=== PATIENT | female | born 1985 | race Caucasian/White ===

== ENCOUNTER 2018-08-04 12:47 | Inpatient (IN) | payer BC ==
[2018-08-04] VITALS (37 sets, daily range): BP systolic 116–190; BP diastolic 67–114; PULSE 64–94; RESP 5–21; BMI 30.7
[~2018-08-04] VITALS: Ht 160 cm; Wt 82.6 kg
[2018-08-04] MEDS ORDERED: MAGNESIUM SULFATE 20 GM/500 ML 500 ML IV SCH (13:05)
[2018-08-04] MEDS ORDERED: FUROSEMIDE 40 MG INJ ONE ×3 (13:05→13:28)
[2018-08-04] MEDS ORDERED: MAGNESIUM SULFATE 4 GM/100 ML 100 ML IV SCH (13:05)
[2018-08-04] MEDS ORDERED: LABETALOL HCL 20MG INJ ONE ×3 (13:09→13:29)
[2018-08-04] MEDS ORDERED: hydrALAzine 20 MG INJ ONE (13:36)
[2018-08-04] MEDS ORDERED: SUCCINYLCHOLINE CHLORIDE 100 MG/5 ML SYG IV ONE (13:45)
[2018-08-04] MEDS ORDERED: METOCLOPRAMIDE 10 MG INJ ONE (13:45)
[2018-08-04] MEDS ORDERED: CEFAZOLIN 1 GM INJ ONE (13:45)
[2018-08-04] MEDS ORDERED: PROPOFOL 20 ML ONE (13:45)
[2018-08-04] MEDS ORDERED: OXYTOCIN 30 UNITS/LR 500 ML IV ONE (13:46)
[2018-08-04] MEDS ORDERED: HYDROmorphONE 2 MG/ML SYG ONE (13:52)
[2018-08-04] MEDS ORDERED: ROPIVACAINE 0.5 % 30 ML VIAL ONE (14:03)
--- NOTE | 2018-08-04 14:14 | PREAC ---
Date/Time of Note Date/Time of Note DATE: 08/04/18 TIME: 14:12 Anesthesia Eval and Record Evaluation Time Pre-Procedure Interview DATE: 08/04/18 TIME: 14:12 Age 32 Sex female NPO: 4 hrs Preoperative diagnosis severe eclampsie pul edema, epigastic pain Planned procedure c section Past Medical History Past Medical History: Includes : Gestational age: (31) Surgery & Anesthesia Issues No known issue Meds Anticoagulation: No Beta Omar within 24 hr: No Reason Beta Omar not given: Pt. not on B-Omar Current Medications Lactated Ringer's 1,000 ml @ 125 mls/hr Q8H IV ; Start 08/04/18 at 14:07 Cefazolin Sodium/ Dextrose 50 ml @ 100 mls/hr ONCE IVPB ; Start 08/04/18 at 14:30 Oxytocin/Lactated Ringer's 500 ml @ 0 mls/hr ONCE PRN IV .VAGINAL BLEEDING; Start 08/04/18 at 14:30; Status UNV Methylergonovine Maleate (Methergine) 0.2 mg ONCE PRN IM .VAGINAL BLEEDING; Start 08/04/18 at 14:30 Carboprost Tromethamine (Hemabate) 250 mcg ONCE PRN IM .VAGINAL BLEEDING; Start 08/04/18 at 14:30; Status UNV Misoprostol (Cytotec) 1,000 mcg ONCE PRN SD .VAGINAL BLEEDING; Start 08/04/18 at 14:30; Status UNV Meds reviewed: Yes Allergies Coded Allergies: No Known Allergy (Unverified , 08/04/18) Allergies Reviewed: Yes Labs/Studies Labs Reviewed: Reviewed by anesthesiologist Result Diagram: 08/04/18 1324 08/04/18 1324 Laboratory Tests 08/04/18 13:24 test: Positive Studies: ECG (n/a) Pre-procedure Exam Airway: Adequate mouth opening Mallampati: Mallampati I Teeth: Normal Lung: Normal Heart: Normal ASA Physical Status ASA physical status: 3 Emergency: E Planned Anesthetic General/MAC: ETT Nerve block: TAP (bilateral) Planned Pain Management Single shot nerve block, Parenteral pain med Pre-operative Attestations Prior to commencing anesthesia and surgery, the patient was re-evaluated, there was verification of: *The patient's identity *The results of appropriate recent lab work and preoperative vital signs *The above evaluation not changing prior to induction *Anesthetic plan, risk benefits, alternative and complications discussed with patient/family; questions answered; patient/family understands, accepts and wishes to proceed. CUBA DOZIER MD August 04, 2018 14:14
[2018-08-04] MEDS ORDERED: MISOPROSTOL 200 MCG TAB PR PRN ×2 (14:30→15:30)
[2018-08-04] MEDS ORDERED: METHYLERGONOVINE 0.2 MG INJ IM PRN (14:30)
[2018-08-04] MEDS ORDERED: CARBOPROST 250 MCG INJ IM PRN ×2 (14:30→15:30)
[2018-08-04] MEDS ORDERED: OXYTOCIN 30 UNITS/LR 500 ML IV PRN ×2 (14:30→15:30)
[2018-08-04] MEDS ORDERED: CEFAZOLIN 2 GM/50 ML (PMX) 50 ML IVPB SCH (14:30)
--- NOTE | 2018-08-04 14:31 | OPPN ---
Date/Time of Note Date/Time of Note DATE: 08/04/18 TIME: 14:27 Operative Report Planned Procedure Procedure date August 04, 2018 Procedure(s) Primary c/s Performed by Shanta Loredo MD Park Worker: STEPHANIE KINGSLEY MD 2nd Park Worker none Anesthesiologist: CUBA DOZIER MD Pre-procedure diagnosis preeclampsia with severe features [id number] Anesthesia Type: [id number] general Post-Procedure Post-procedure diagnosis same Findings Live Baby [], Apgars 6 and 7 Estimated Blood Loss: other (500 ml) Specimen(s) Placenta Grafts/Implant(s) none Complication(s) none SHANTA LOREDO MD August 04, 2018 14:31
[2018-08-04] MEDS: MAGNESIUM SULFATE 20 GM/500 ML 500 ML IV SCH ×2 (15:00→23:36)
[2018-08-04] MEDS ORDERED: OXYTOCIN 30 UNITS/LR 500 ML IV SCH (15:12)
[2018-08-04] MEDS ORDERED: LACTATED RINGER'S 1,000 ML IV SCH (15:12)
[2018-08-04] MEDS ORDERED: LANOLIN HPA 1 PKT TOP PRN (15:30)
[2018-08-04] MEDS ORDERED: OXYCODONE/ACETAMINOPHEN (5/325) TAB PO PRN ×3 (15:30→17:00)
[2018-08-04] MEDS ORDERED: ONDANSETRON 4 MG INJ IV PRN (15:30)
[2018-08-04] MEDS ORDERED: LABETALOL HCL 20MG INJ IV ONE ×2 (15:30→18:00)
[2018-08-04] MEDS ORDERED: HYDROmorphONE 0.2 MG/ML PCA IV SCH ×3 (15:30→17:30)
[2018-08-04] MEDS ORDERED: KETOROLAC 30 MG INJ IV PRN ×2 (15:30→17:00)
[2018-08-04] MEDS ORDERED: MEPERIDINE 25 MG INJ IV PRN (15:30)
[2018-08-04] MEDS ORDERED: DIPHENHYDRAMINE 50 MG INJ IV PRN ×2 (15:30→17:00)
[2018-08-04] MEDS ORDERED: HYDROmorphONE 0.5 MG/0.5 ML SYG IV PRN ×3 (15:30→17:00)
[2018-08-04] MEDS: LACTATED RINGER'S 1,000 ML IV SCH ×2 (15:35→21:31)
[2018-08-04] MEDS: HYDROmorphONE 0.5 MG/0.5 ML SYG IV PRN ×2 (15:45→16:38)
[2018-08-04] MEDS: LABETALOL HCL 20MG INJ IV PRN ×2 (16:38→19:53)
[2018-08-04] MEDS ORDERED: NALOXONE (0.4 MG/ML) INJ IV PRN (17:00)
[2018-08-04] MEDS ORDERED: HYDROmorphONE 1 MG/ML SYG IV PRN (17:00)
[2018-08-04] MEDS ORDERED: ACETAMINOPHEN 500 MG TAB PO PRN (17:00)
[2018-08-04] MEDS ORDERED: FUROSEMIDE 20 MG INJ IV ONE (18:00)
--- NOTE | 2018-08-04 19:29 | HP ---
Date/Time of Note Date/Time of Note DATE: 08/04/18 TIME: 19:28 Late entry note OB - History Hx of Present Free Text/Dictation August 04, 2018 : 5 Para: 3 Spontaneous : 1 Other Concerns: 32-year-old 5 para 3 with IUP at 30 weeks and 2 days and care with Dr. Chaparro was sent from the clinic due to elevated blood pressure in the range of 150s over 80s to 90s during the office visit today. Was advised by primary OB to go to triage for rule out PIH. When patient arrived to triage no tyrel to have elevated blood pressure in the severe range of 190s to 230/100 220s. Patient was complaining of significant severe right upper quadrant pain and epigastric pain as well as complaint of shortness of breath and was gasping for air. She denied any leaking of fluid, vaginal bleeding or decreased movement. Patient reported trouble breathing in the laying down position and desire to get position in the vertical 90 degree noted to be able to breathe. There was 1-2+ bilateral lower extremity edema as well. Nursing team was immediately called as well as rapid response team, anesthesia immediately to obtain the IV line. Patient oxygen saturation during observation in triage was a 98 percentile. heart rate was in the range of 130s to 120s. Lungs auscultation noted decreased breathing sounds as well as questionable crackle in the base of the both lungs. Maternal tachycardia noted. At this point severe preeclampsia protocol activated. there was difficulty obtaining IV line but after attempts could be able to obtain IV line and magnesium started as well as given 20 mg of labetalol. Due to significant shortness of breath and difficulty breathing and possibility of pulmonary edema as a complication of severe preeclampsia IV Lasix 30 mg slowly given as well as 4 mg magnesium started for seizure prophylaxis. Discussed with the patient regarding emergency section and consent was signed. Patient's was contacted by nursing staff to inform about the necessity of emergency section due to maternal rapid deterioration. PIH labs obtained and was submitted for stat Consulted immediately with perinatologist Dr. Jenkins presented to patient's l ocation. Anesthesia also at bedside. Discussed regarding possibility of general anesthesia, due to possibility of pulmonary edema and current maternal condition. Perinatologist agreed with this plan as well primary OB attending Dr. Quinteros was notified who was on his way to the hospital NICU, OR team and nursing staff all were ready and patient was told to the OR for immediate section. labs were not available but plan to obtain immediately. Labs reviewed while we were in the OR. LFTs in the range of 200s. Platelet normal. Hemoconcentration noted. Patient also needed to receive a dose of 10 mg hydralazine in the OR during the procedure. IV antibiotics was also given in the OR prior to skin incision.. Please see the operative report of primary attending Past Family/Social History * Past Medical, Surgical, Family and Obstetric Histories reviewed from chart. OB Admission Exam Vital Signs Vital Signs Vital Signs Date Temp Pulse Resp B/P (MAP) Pulse Ox O2 O2 Flow FiO2 Time Delivery Rate 08/04/18 69 6 131/91 97 18:30 (104) 08/04/18 Room Air 18:00 08/04/18 97.7 16:00 08/04/18 10.0 15:00 Last 72 hourBlood Glucose Bedside Glucose - 72 Hours Test 08/04/18 13:20 Bedside Glucose 114 mg/dL (70-220) Last 72 hours Lab Results CBC & BMP 08/04/18 13:24 08/04/18 17:25 Liver Function Test 08/04/18 13:24 08/04/18 17:25 Alanine Aminotransferase (ALT/SGPT) 203 H 710 H Albumin 4.2 3.4 Alkaline Phosphatase 144 H 135 H Aspartate Amino Transf (AST/SGOT) 264 H 1199 H Direct Bilirubin 0.00 0.00 Total Protein 8.2 H 7.1 # Magnesium Level Test 08/04/18 17:25 Magnesium Level 5.2 *H STEPHANIE KINGSLEY MD August 04, 2018 19:29
[2018-08-04] MEDS: SENNA/DOCUSATE NA (8.6MG/50MG) TAB PO SCH (20:16)
[2018-08-04] MEDS: ONDANSETRON 4 MG INJ IV PRN (20:42)
[2018-08-04] MEDS ORDERED: CARBOPROST 250 MCG INJ ONE (21:00)
[2018-08-04] MEDS ORDERED: OXYTOCIN 30 UNITS/LR 500 ML BAG IV ONE (21:00)
--- NOTE | 2018-08-04 22:37 | OPR ---
DATE OF OPERATION: 08/04/2018 PREOPERATIVE DIAGNOSES: at 30 weeks and 2 days with preeclampsia with severe features. POSTOPERATIVE DIAGNOSES: at 30 weeks and 2 days with preeclampsia with severe features. OPERATION PERFORMED: Primary low transverse section. SURGEON: Shanta Chaparro MD INSTALLMENT AGENT: Chaparrita Richey MD ANESTHESIA: General. ANESTHESIOLOGIST: Dayanara Membreno MD PROCEDURE: The patient was taken to the operating room, placed on the operating table in supine posi tion. The area was prepared and draped in the usual sterile fashion. After adequate general anesthe dereje was given, using scalpel, a Pfannenstiel incision was made about 2 fingerbreadths above the symph ysis pubis. The incision was carried down to the fascia. The fascia was incised and extended bilate rally with Mojica scissors. Two Jonnie's were used to separate the fascia from the muscle. The muscle was dissected down to the peritoneum. The peritoneum was bluntly entered. Using a scalpel, a small transverse incision was made on the lower segment of uterus. Upon entering the uterine cavity, band age scissors were inserted to extend the incision bilaterally curved up. Baby was delivered from rig ht sacral anterior position. After suctioning clear of amniotic fluid, the baby was handed off to [facility] mammography technologist in attendance. Apgars were 6 and 7. Placenta was delivered without difficulty. The uterus was closed with #1 Monocryl continuous locked. Using #1 PDS, [id number] were placed on small bleeders. After assuring hemostasis, both ovaries and tubes were inspected, all looked normal . The peritoneum was closed with 2-0 Vicryl continuous. Fascia was closed with #1 Vicryl continuous in 2 segments. Subcutaneous tissue was reapproximated with 2-0 plain. The skin was closed with sta ples. ESTIMATED BLOOD LOSS: 500 mL. COUNTS: All counts were correct. The patient was extubated and transferred to the intensive care unit in stable condition. Dictated By: SHANTA CHAPAROR MD GD/NTS Conf#: [id number] DID#: [id number] CC: SHANTA CHAPARRO MD;*EndCC*
[2018-08-05] VITALS (57 sets, daily range): BP systolic 111–187; BP diastolic 65–103; PULSE 54–89; RESP 7–26; Ht 160 cm; Wt 82.6 kg
[2018-08-05] MEDS: ONDANSETRON 4 MG INJ IV PRN ×2 (01:11→08:22)
[2018-08-05] MEDS: LACTATED RINGER'S 1,000 ML IV SCH ×4 (05:56→23:31)
--- NOTE | 2018-08-05 06:56 | PAC ---
Date/Time of Note Date/Time of Note DATE: 08/05/18 TIME: 06:55 Post-Anesthesia Notes Post-Anesthesia Note Last documented vital signs Vital Signs Date Temp Pulse Resp B/P (MAP) Pulse Ox O2 O2 Flow FiO2 Time Delivery Rate 08/05/18 98.3 79 04:00 08/05/18 98.3 75 14 117/71 97 Room Air 03:00 (86) 08/05/18 98.0 00:00 08/04/18 10.0 15:00 Activity: WNL Respiratory function: WNL Cardiovascular function: WNL Mental status: Baseline Pain reasonably controlled: Yes Hydration appropriate: Yes Nausea/Vomiting absent: No CUBA DOZIER MD August 05, 2018 06:56
--- NOTE | 2018-08-05 06:57 | OPPN ---
Date/Time of Note Date/Time of Note DATE: 08/05/18 TIME: 06:56 Anesthesia Follow up Anesthesia Follow up Last documented vital signs Vital Signs Date Temp Pulse Resp B/P (MAP) Pulse Ox O2 O2 Flow FiO2 Time Delivery Rate 08/05/18 79 04:00 08/05/18 14 117/71 97 Room Air 03:00 (86) 08/05/18 98.0 00:00 08/04/18 10.0 15:00 Respiratory function: WNL Cardiovascular function: WNL Comments a 30 year post duramorph for post op pain POD #1 is fine . No itching, N/V/ headache, neural deficit.Pain is controlled CUBA DOZIER MD August 05, 2018 06:57
[2018-08-05] MEDS: SENNA/DOCUSATE NA (8.6MG/50MG) TAB PO SCH ×2 (08:22→21:06)
[2018-08-05] MEDS: LABETALOL HCL 20MG INJ IV PRN (10:04)
[2018-08-05] MEDS: MAGNESIUM SULFATE 20 GM/500 ML 500 ML IV SCH (10:35)
[2018-08-05] MEDS: LABETALOL 200 MG TAB PO SCH ×2 (14:19→21:07)
--- NOTE | 2018-08-05 20:26 | QN ---
Documentation Comment No complaint Afebrile BP improving Abdomen soft D/C magnesium Start labetalol Labs improving SHANTA LOREDO MD August 05, 2018 20:26
[2018-08-06] VITALS (34 sets, daily range): BP systolic 109–173; BP diastolic 66–100; PULSE 58–87; RESP 12–28
[2018-08-06] MEDS: LABETALOL 200 MG TAB PO SCH ×3 (05:44→22:04)
[2018-08-06] MEDS: LACTATED RINGER'S 1,000 ML IV SCH (08:01)
[2018-08-06] MEDS: SENNA/DOCUSATE NA (8.6MG/50MG) TAB PO SCH ×2 (08:06→20:59)
[2018-08-06] MEDS: HYDROmorphONE 0.5 MG/0.5 ML SYG IV PRN ×2 (08:06→13:37)
[2018-08-06] MEDS: HYDROCODONE/APAP (5/325) TAB PO PRN ×3 (12:18→21:00)
--- NOTE | 2018-08-06 16:55 | QN ---
Documentation Comment No complaint Afebrile VSS Abdomen soft Stable Transfer to Monitor BP Ambulate with assistance. SHANTA LOREDO MD August 06, 2018 16:55
[2018-08-07] VITALS (19 sets, daily range): BP systolic 133–167; BP diastolic 80–102; PULSE 59–93; RESP 15–20
[2018-08-07] MEDS: HYDROCODONE/APAP (5/325) TAB PO PRN ×5 (03:38→23:50)
[2018-08-07] MEDS ORDERED: NIFEdipine (XL) 30 MG TAB PO ONE (04:30)
[2018-08-07] MEDS: LABETALOL 200 MG TAB PO SCH ×3 (05:43→22:09)
[2018-08-07] MEDS: SENNA/DOCUSATE NA (8.6MG/50MG) TAB PO SCH ×2 (08:16→21:19)
[2018-08-07] MEDS ORDERED: DIPHTH/TET/ACEL PERTUSS (ADULT) 0.5 ML VIAL IM* ONE (09:00)
[2018-08-07] MEDS: NIFEdipine (XL) 30 MG TAB PO SCH ×2 (09:29→21:20)
[2018-08-07] MEDS: IBUPROFEN 800 MG TAB PO PRN ×2 (14:09→23:50)
--- NOTE | 2018-08-07 14:35 | QN ---
Documentation Comment c/o headache. No other complaint Afebrile BP elevated systolic 140's-160's Abdomen soft Labs improving Patient was on labetalol and nifedipine was added to control her BP Will get Cardiology consult SHANTA LOREDO MD August 07, 2018 14:35
[2018-08-07] MEDS: AMOXICILLIN 500 MG CAP PO SCH ×2 (16:37→22:09)
--- NOTE | 2018-08-07 19:27 | RADRPT ---
Vent Rate: 71 bpm RR Interval: 840 msec CO Interval: 152 msec QRS Duration: 82 msec QT Interval: 398 msec QTC Interval: 434 msec P-R-T Blanding: 46 - 75 - 52 degrees Sinus rhythm...normal P axis, V-rate 50- 99 Electronically Signed By: Roger Perdue
--- NOTE | 2018-08-07 19:36 | CONS ---
DATE OF ADMISSION: 08/04/2018 DATE OF CONSULTATION: 08/07/2018 TYPE OF CONSULTATION: Cardiology. REASON FOR CONSULTATION: Hypertension. REQUESTING PHYSICIAN: Shanta Loredo MD HISTORY OF PRESENT ILLNESS: Ms. Wyatt is a very pleasant 32-year-old female who is now G5, P4, status post emergent delivery on 08/04/2018 for development of preeclampsia. The patient had presented to her outpatient care visit and was noted to have elevated systolic blood pressures over 180s up to 90s. The patient was instructed to present to [facility] for further evaluation. Upon arrival at [facility], she states she walked up and upon arrival after walking into the hospital, developed significant shortness of breath, abdominal pains and subsequently on evaluation was noted to have severely elevated blood pressures in the 190s up to greater than 200s over 100s. The patient then began to develop shortness of breath and per notes, was having 1 to 2+ bilateral lower extremity edema; therefore, the patient was treated with Lasix due to shortness of breath, was started on magnesium and after discussion with patient and , was taken emergently to the OR and underwent delivery. The patient required intubation during this procedure and was admitted to the ICU postoperatively with tele strips in the chart from the ICU monitoring revealing heart rates mainly in the 60s to 70s, sinus rhythm. The patient continued to have elevated blood pressures, was started on labetalol postoperatively with initially a good response and down trending in blood pressures into the 120s to 130s, on 200 mg p.o. q.8 and subsequently during overnight on 08/06/2018 leading into 08/07/2018 had again rising systolic blood pressures into the 160s and was given a dose of nifedipine 30 mg p.o. once and then started on Procardia XL 30 mg p.o. b.i.d. She received an additional dose this morning at 9:30. The patient's most recent blood pressures are now in the high 140s to 150s. The patient has had a headache treated with ibuprofen and underwent an MRI revealing no acute abnormalities. PAST MEDICAL HISTORY: As above in HPI. MEDICATIONS CURRENTLY IN HOSPITAL: 1. Amoxicillin 500 mg p.o. q.8. 2. Motrin 800 mg p.o. t.i.d. p.r.n. 3. Procardia-XL 30 mg p.o. b.i.d. 4. Allen p.r.n. 5. Labetalol 200 mg p.o. q.8. 6. Senna. 7. Narcan. 8. Tylenol. 9. Dilaudid p.r.n. 10. Zofran p.r.n. 11. P.r.n. IV push labetalol, but patient no longer has IV. 12. Cefazolin. ALLERGIES: NO KNOWN DRUG ALLERGIES. SOCIAL HISTORY: No tobacco, EtOH or illicit drug use. FAMILY HISTORY: No history of sudden cardiac or early CAD. REVIEW OF SYSTEMS: As above in HPI. CONSTITUTIONAL: No fevers, chills. PULMONARY: No current shortness of breath. CARDIOVASCULAR: Hypertension. No current chest pain. GASTROINTESTINAL: No vomiting. GENITOURINARY: Status post delivery. NEUROLOGIC: Headache. ENDOCRINE: No documented history of diabetes mellitus or thyroid disease. PHYSICAL EXAMINATION: VITAL SIGNS: Temperature of 98.8, blood pressure 151/88, pulse 68. GENERAL: The patient is alert, awake, in no acute distress. NECK: JVP is approximately 8 to 9 cm of water. CHEST: Fair air movement throughout. HEART: Regular rate and rhythm. Normal S1, S2, I/ systolic murmur, nondisplaced PMI. ABDOMEN: Soft with diffuse tenderness to palpation. EXTREMITIES: No significant pitting edema, 1+ pulses bilaterally posterior tibial. LABORATORY DATA: Most recently from today, white blood cell count of 11.7, hemoglobin 10.8, platelet count of 107. Sodium of 139, potassium 4.3, creatinine 0.49, BUN of 5. INR of 0.86. UA negative. IMAGING STUDIES: As above in HPI. Additionally with chest x-ray from 08/04/2018 revealing no acute airspace disease. Lungs are clear. ELECTROCARDIOGRAM: From 08/07/2018 today reveals sinus rhythm, rate of 71, normal axis and intervals, isolated T-wave flattening in lead aVL and borderline inferior Q in 3 and 2. IMPRESSION: 1. -induced hypertension/preeclampsia status post emergent section delivery with ongoing hypertension, slowly improving on oral antihypertensives. 2. Shortness of breath and possible development of pulmonary edema prior to C- section delivery concerning for development of preeclampsia. 3. Headaches with normal MRI revealing no acute abnormalities. 4. Short systolic murmur likely physiologically with increased following her . 5. Anemia. 6. Leukocytosis, mild improvement. RECOMMENDATIONS: 1. At this time, we would maintain the patient on current dose of labetalol and Procardia. Continue to follow blood pressure closely. 2. The patient has no IV line at this time and does not want to have one in place unless necessary. We will give the patient p.o. p.r.n. hydralazine for significantly further elevated systolic blood pressures while we continue to titrate the patient's baseline Procardia and labetalol as necessary. 3. We would check serial EKGs and thus check repeat EKG in the morning. Check an EKG if the patient did not develop any chest pains, palpitations. 5. We will send troponins q.6 x2 to ensure the patient has not any provoked any acute coronary syndromes in the setting of severe induced hypertension, preeclampsia as well as the patient had preoperatively unlikely but we will check. 6. We will check a 2D echo to further assess patient's ejection fraction, wall motion and check for any possible structural heart disease or effects of longstanding hypertension, although the patient states that she has not had a history of hypertension except with her second but states levels were never this high. In between pregnancies states she is not getting regular care but does see her cover stripper ____ has had normotensive pressure. Thank you for allowing me to take part in the care of this patient. I will continue to follow her along very closely with you with further recommendations to be made as the patient progresses through her inpatient hospital clinical course. Dictated By: BLAINE LOPEZ/JEWELL Conf#: [id number] DID#: [id number] CC: SHANTA LOREDO MD;*EndCC* MTDD
[2018-08-08] VITALS (16 sets, daily range): BP systolic 115–151; BP diastolic 70–100; PULSE 57–83; RESP 18–20
[2018-08-08] MEDS: AMOXICILLIN 500 MG CAP PO SCH ×3 (05:42→22:00)
[2018-08-08] MEDS: HYDROCODONE/APAP (5/325) TAB PO PRN ×4 (05:43→18:50)
[2018-08-08] MEDS: LABETALOL 200 MG TAB PO SCH ×3 (06:00→22:00)
[2018-08-08] MEDS ORDERED: LABETALOL 100 MG TAB PO ONE (06:15)
[2018-08-08] MEDS: SENNA/DOCUSATE NA (8.6MG/50MG) TAB PO SCH ×2 (09:04→21:02)
[2018-08-08] MEDS: NIFEdipine (XL) 30 MG TAB PO SCH ×2 (09:05→21:02)
--- NOTE | 2018-08-08 12:29 | QN ---
Documentation Comment Cardilology consult noted and appreciated Patient with mild headache Afebrile VSS Abdomen soft BP fluctuating Contine to control BP SHANTA LOREDO MD August 08, 2018 12:29
[2018-08-08] MEDS ORDERED: MAGNESIUM HYDROXIDE 30ML CUP PO ONE (12:30)
--- NOTE | 2018-08-08 15:46 | CONS ---
Assessment/Plan Assessment/Plan Hospital Course (Demo Recall) IMPRESSION: 1. -induced hypertension/preeclampsia status post emergent section delivery with ongoing hypertension, slowly improving on oral antihypertensives.-reasonable control and has elevation after only receiving half of labetelol dose this am. Most recently after labetelol and procardia very well controlled. Echo today with NL EF and no sig valve abnl. Trop neg x 2 2. Shortness of breath and possible development of pulmonary edema prior to C- section delivery concerning for development of preeclampsia. 3. Headaches with normal MRI revealing no acute abnormalities.-ongoing 4. Short systolic murmur likely physiologically with increased following her . 5. Anemia. 6. Leukocytosis, mild improvement. 7. Hypertriglyceridemia-mild. With good LDL/HDL profile Recc; -Contineu procardia XL/labtelol at current doses today and f/u BP clsoely -Continue to follow LFT's which have mildly increased -PRN PO hydralazine for sig elevations SBP/DBP -Rx and continue to eval NAVA Consultation Date/Type/Reason Admit Date/Time August 04, 2018 at 13:29 Initial Consult Date 08/07/18 Type of Consult Cardiology Reason for Consultation HTN Requesting Provider: SHANTA LOREDO MD Date/Time of Note DATE: 08/08/18 TIME: 15:39 Exam/Review of Systems Vital Signs Vitals Vital Signs Date Temp Pulse Resp B/P (MAP) Pulse Ox O2 O2 Flow FiO2 Time Delivery Rate 08/08/18 80 18 125/86 Room Air 14:00 (99) 08/08/18 98.4 08:00 08/06/18 94 14:00 08/04/18 10.0 15:00 Exam Exam Review of Systems: CONSTITUTIONAL: No fevers, chills. PULMONARY: No sob CARDIOVASCULAR: No chest pain/palpitations GASTROINTESTINAL: No nausea/vomiting. GENITOURINARY: No hematuria/dysuria. MUSCULOSKELETAL: No myagias/arthalgias. PSYCHIATRIC: The patient denies depression. NEUROLOGIC: No weakness Constitutional: alert Psych: no complaints Head: normocephalic ENMT: mucosa pink and moist Neck: supple, jvd (9 cm water) Respiratory: diminished breath sounds Cardiovascular: regular rate and rhythm Gastrointestinal: soft, non-tender Musculoskeletal: muscle tone (normal) Extremities: edema (none) Neurological: other (No focal deficits) Labs Result Diagram: 08/08/18 0618 08/08/18 0618 Results 24hrs Laboratory Tests Test 08/08/18 00:25 08/08/18 06:18 Troponin I < 0.012 < 0.012 White Blood Count 8.8 # Red Blood Count 4.22 Hemoglobin 12.9 Hematocrit 38.8 Mean Corpuscular Volume 91.9 Mean Corpuscular Hemoglobin 30.6 Mean Corpuscular Hemoglobin Concent 33.2 Red Cell Distribution Width 15.0 H Platelet Count 187 # Mean Platelet Volume 9.8 Immature Granulocytes % 2.700 H Neutrophils % 63.9 Lymphocytes % 23.2 Monocytes % 6.4 Eosinophils % 3.2 Basophils % 0.6 Nucleated Red Blood Cells % 0.0 Immature Granulocytes # 0.240 H Neutrophils # 5.6 Lymphocytes # 2.0 Monocytes # 0.6 Eosinophils # 0.3 Basophils # 0.1 Nucleated Red Blood Cells # 0.0 Sodium Level 139 Potassium Level 4.0 Chloride Level 108 Carbon Dioxide Level 22 Anion Gap 9 Blood Urea Nitrogen 7 Creatinine 0.51 Est Glomerular Filtrat Rate mL/min > 60 Glucose Level 93 Calcium Level 9.0 Total Bilirubin 0.7 Direct Bilirubin 0.00 Indirect Bilirubin 0.7 Aspartate Amino Transf (AST/SGOT) 117 H Alanine Aminotransferase (ALT/SGPT) 178 H Alkaline Phosphatase 132 H Total Protein 7.7 # Albumin 3.7 Globulin 4.00 H Albumin/Globulin Ratio 0.92 Triglycerides Level 205 H Cholesterol Level 205 H LDL Cholesterol, Calculated 87 HDL Cholesterol 77 Cholesterol/HDL Ratio 2.6 Medications Medications Current Medications Cefazolin Sodium/ Dextrose 50 ml @ 100 mls/hr ONCE IVPB ; Start 08/04/18 at 14:30 Oxytocin/Lactated Ringer's 500 ml @ 0 mls/hr ONCE PRN IV .VAGINAL BLEEDING; Start 08/04/18 at 14:30 Methylergonovine Maleate (Methergine) 0.2 mg ONCE PRN IM .VAGINAL BLEEDING; Start 08/04/18 at 14:30 Carboprost Tromethamine (Hemabate) 250 mcg ONCE PRN IM .VAGINAL BLEEDING; Start 08/04/18 at 14:30 Misoprostol (Cytotec) 1,000 mcg ONCE PRN [place] .VAGINAL BLEEDING; Start 08/04/18 at 14:30 Simethicone (Mylicon) 160 mg Q8H PRN PO .GAS Last administered on 08/08/18 09:06; Admin Dose 160 MG; Start 08/04/18 at 15:30 Senna/Docusate Sodium (Senokot-S) 1 tab BID PO Last administered on 08/08/18 09:04; Admin Dose 1 TAB; Start 08/04/18 at 21:00 Lanolin (Lanolin Hpa) 1 applic BEDSIDE MEDICATION PRN TOP .NIPPLES; Start 08/04/18 at 15:30 Oxytocin/Lactated Ringer's 500 ml @ 0 mls/hr ONCE PRN IV .VAGINAL BLEEDING; Start 08/04/18 at 15:30 Carboprost Tromethamine (Hemabate) 250 mcg ONCE PRN IM .VAGINAL BLEEDING; Start 08/04/18 at 15:30 Misoprostol (Cytotec) 1,000 mcg ONCE PRN [place] .VAGINAL BLEEDING; Start 08/04/18 at 15:30 Labetalol HCl (Labetalol) 20 mg Q10MIN PRN IV SBP >150 OR DBP >100 Last administered on 08/05/18at 10:04; Admin Dose 20 MG; Start 08/04/18 at 16:00 Naloxone HCl (Narcan) 0.2 mg PRN PRN IV RR < 8; Start 08/04/18 at 17:00 Acetaminophen (Tylenol Tab) 500 mg Q4H PRN PO PAIN LEVEL 1-5 Last administered on 08/05/18 10:01; Admin Dose 500 MG; Start 08/04/18 at 17:00 Oxycodone/ Acetaminophen (Percocet (5/ 325)) 1 tab Q4H PRN PO PAIN LEVEL 1-5; Start 08/04/18 at 17:00; Status Hold Hydromorphone HCl (Dilaudid) 0.5 mg Q3 PRN IV .BREAKTHROUGH PAIN Last administered on 08/06/18 02:19; Admin Dose 0.5 MG; Start 08/04/18 at 17:00 Hydromorphone HCl (Dilaudid) 0.2 mg Q4H PRN IV PAIN LEVEL 1-5 Last administered on 08/06/18 13:37; Admin Dose 0.2 MG; Start 08/04/18 at 17:00 Hydromorphone HCl (Dilaudid) 0.4 mg Q4H PRN IV PAIN LEVEL 6-10 Last administere d on 08/05/18 01:16; Admin Dose 0.4 MG; Start 08/04/18 at 17:00 Ondansetron HCl (Zofran Inj) 4 mg Q6H PRN IV NAUSEA AND/OR VOMITING Last administered on 08/05/18 08:22; Admin Dose 4 MG; Start 08/04/18 at 17:00 Diphenhydramine HCl (Benadryl) 25 mg Q6H PRN IV .ITCHING Last administered on 08/06/18 01:56; Admin Dose 25 MG; Start 08/04/18 at 17:00 Labetalol HCl (Normodyne) 200 mg Q8 PO Last administered on 08/08/18 14:17; Admin Dose 200 MG; Start 08/05/18 at 14:30 Acetaminophen/ Hydrocodone Bitart ([place] (5/325)) 1 tab Q4H PRN PO PAIN LEVEL 1-5 Last administered on 08/07/18 23:50; Admin Dose 1 TAB; Start 08/05/18 at 19:00 Acetaminophen/ Hydrocodone Bitart ([place] (5/325)) 2 tab Q4H PRN PO PAIN LEVEL 6-10 Last administered on 08/08/18 14:24; Admin Dose 2 TAB; Start 08/05/18 at 19:00 Nifedipine (Procardia Xl) 30 mg BID PO Last administered on 08/08/18 09:05; Admin Dose 30 MG; Start 08/07/18 at 09:00 Ibuprofen (Motrin) 800 mg TID PRN PO PAIN Last administered on 08/07/18 23:50; Admin Dose 800 MG; Start 08/07/18 at 14:00 Amoxicillin (Amoxicillin) 500 mg Q8 PO Last administered on 08/08/18 14:23; Admin Dose 500 MG; Start 08/07/18 at 16:30 Hydralazine HCl (Apresoline) 25 mg Q6H PRN PO SBP>160; Start 08/07/18 at 19:00 Eye Lubricant (Artificial Tears Oph) 2 drop Q6H PRN BOTH EYES DRY EYES; Start 08/08/18 at 12:30 BLAINE DE DIOS August 08, 2018 15:46
[2018-08-08] MEDS: ARTIFICIAL TEARS 15 ML OPH BOTH EYES PRN (18:51)
[2018-08-08] MEDS: IBUPROFEN 800 MG TAB PO PRN (19:48)
[2018-08-09] VITALS (11 sets, daily range): BP systolic 109–146; BP diastolic 65–94; PULSE 61–87; RESP 17–19
[2018-08-09] MEDS: IBUPROFEN 800 MG TAB PO PRN ×3 (04:16→20:08)
[2018-08-09] MEDS: HYDROCODONE/APAP (5/325) TAB PO PRN (06:02)
[2018-08-09] MEDS: LABETALOL 200 MG TAB PO SCH ×3 (06:02→22:57)
[2018-08-09] MEDS: AMOXICILLIN 500 MG CAP PO SCH ×3 (06:02→21:42)
[2018-08-09] MEDS: NIFEdipine (XL) 30 MG TAB PO SCH ×2 (09:11→21:42)
[2018-08-09] MEDS: SENNA/DOCUSATE NA (8.6MG/50MG) TAB PO SCH ×2 (09:11→21:00)
[2018-08-09] MEDS: ARTIFICIAL TEARS 15 ML OPH BOTH EYES PRN (11:29)
--- NOTE | 2018-08-09 12:26 | CONS ---
Consult Date/Type/Reason Admit Date/Time August 04, 2018 at 13:29 Initial Consult Date Requesting Provider: SHANTA LOREDO MD Date/Time of Note DATE: 08/09/18 TIME: 12:25 Subjective No acute events - pt better - BP controlled. ROS: No fever, no chills, no nausea, no vomiting, no diarrhea/constipation No recent weight changes No chest pain, no PND, no orthopnea No dizziness, blurred vision No thirst, no heat or cold intolerance Objective Vitals Vital Signs Date Temp Pulse Resp B/P (MAP) Pulse Ox O2 O2 Flow FiO2 Time Delivery Rate 08/09/18 61 136/76 12:09 (96) 08/09/18 18 Room Air 11:35 08/09/18 99.1 08:20 08/06/18 94 14:00 Exam General: WN/WD/NAD, AOx 3 HEENT: Unicetric/atraumatic/EOMI (follow commands) NECK: JVD elevated, no thyromegaly Lymph: no lymphadenopathy HEART: regular with no S3, II/ systolic murmur at apex LUNGS: Coarse sounds ABD: soft, NT, ND, +BS - post : Intact Neuro: non focal SKIN: chronic changes EXT: trace edema Results/Medications Result Diagram: 08/09/18 0808/09/18 0805 Results 24 hrs Laboratory Tests Test 08/09/18 08:05 White Blood Count 8.5 Red Blood Count 4.16 L Hemoglobin 12.5 Hematocrit 38.4 Mean Corpuscular Volume 92.3 Mean Corpuscular Hemoglobin 30.0 Mean Corpuscular Hemoglobin Concent 32.6 Red Cell Distribution Width 15.1 H Platelet Count 223 Mean Platelet Volume 9.3 Immature Granulocytes % 1.800 H Neutrophils % 62.6 Lymphocytes % 24.2 Monocytes % 7.4 Eosinophils % 3.5 Basophils % 0.5 Nucleated Red Blood Cells % 0.0 Immature Granulocytes # 0.150 H Neutrophils # 5.4 Lymphocytes # 2.1 Monocytes # 0.6 Eosinophils # 0.3 Basophils # 0.0 Nucleated Red Blood Cells # 0.0 Sodium Level 137 Potassium Level 4.4 Chloride Level 106 Carbon Dioxide Level 26 Anion Gap 5 Blood Urea Nitrogen 11 Creatinine 0.57 Est Glomerular Filtrat Rate mL/min > 60 Glucose Level 90 Uric Acid 4.4 Calcium Level 8.7 Total Bilirubin 0.7 Direct Bilirubin 0.00 Indirect Bilirubin 0.7 Aspartate Amino Transf (AST/SGOT) 81 H Alanine Aminotransferase (ALT/SGPT) 140 H Alkaline Phosphatase 101 Total Protein 6.7 # Albumin 3.3 Globulin 3.40 H Albumin/Globulin Ratio 0.97 Medications Current Medications Cefazolin Sodium/ Dextrose 50 ml @ 100 mls/hr ONCE IVPB ; Start 08/04/18 at 14:30 Oxytocin/Lactated Ringer's 500 ml @ 0 mls/hr ONCE PRN IV .VAGINAL BLEEDING; Start 08/04/18 at 14:30 Methylergonovine Maleate (Methergine) 0.2 mg ONCE PRN IM .VAGINAL BLEEDING; Start 08/04/18 at 14:30 Carboprost Tromethamine (Hemabate) 250 mcg ONCE PRN IM .VAGINAL BLEEDING; Start 08/04/18 at 14:30 Misoprostol (Cytotec) 1,000 mcg ONCE PRN [place] .VAGINAL BLEEDING; Start 08/04/18 at 14:30 Simethicone (Mylicon) 160 mg Q8H PRN PO .GAS Last administered on 08/08/18at 09:06; Admin Dose 160 MG; Start 08/04/18 at 15:30 Senna/Docusate Sodium (Senokot-S) 1 tab BID PO Last administered on 08/09/18at 09:11; Admin Dose 1 TAB; Start 08/04/18 at 21:00 Lanolin (Lanolin Hpa) 1 applic BEDSIDE MEDICATION PRN TOP .NIPPLES; Start 08/04/18 at 15:30 Oxytocin/Lactated Ringer's 500 ml @ 0 mls/hr ONCE PRN IV .VAGINAL BLEEDING; Start 08/04/18 at 15:30 Carboprost Tromethamine (Hemabate) 250 mcg ONCE PRN IM .VAGINAL BLEEDING; Start 08/04/18 at 15:30 Misoprostol (Cytotec) 1,000 mcg ONCE PRN [place] .VAGINAL BLEEDING; Start 08/04/18 at 15:30 Labetalol HCl (Labetalol) 20 mg Q10MIN PRN IV SBP >150 OR DBP >100 Last administered on 08/05/18at 10:04; Admin Dose 20 MG; Start 08/04/18 at 16:00 Naloxone HCl (Narcan) 0.2 mg PRN PRN IV RR < 8; Start 08/04/18 at 17:00 Acetaminophen (Tylenol Tab) 500 mg Q4H PRN PO PAIN LEVEL 1-5 Last administered on 08/05/18 10:01; Admin Dose 500 MG; Start 08/04/18 at 17:00 Oxycodone/ Acetaminophen (Percocet (5/ 325)) 1 tab Q4H PRN PO PAIN LEVEL 1-5; Start 08/04/18 at 17:00; Status Hold Hydromorphone HCl (Dilaudid) 0.5 mg Q3 PRN IV .BREAKTHROUGH PAIN Last administered on 08/06/18 02:19; Admin Dose 0.5 MG; Start 08/04/18 at 17:00 Hydromorphone HCl (Dilaudid) 0.2 mg Q4H PRN IV PAIN LEVEL 1-5 Last administered on 08/06/18 13:37; Admin Dose 0.2 MG; Start 08/04/18 at 17:00 Hydromorphone HCl (Dilaudid) 0.4 mg Q4H PRN IV PAIN LEVEL 6-10 Last administered on 08/05/18 01:16; Admin Dose 0.4 MG; Start 08/04/18 at 17:00 Ondansetron HCl (Zofran Inj) 4 mg Q6H PRN IV NAUSEA AND/OR VOMITING Last administered on 08/05/18 08:22; Admin Dose 4 MG; Start 08/04/18 at 17:00 Diphenhydramine HCl (Benadryl) 25 mg Q6H PRN IV .ITCHING Last administered on 08/06/18 01:56; Admin Dose 25 MG; Start 08/04/18 at 17:00 Labetalol HCl (Normodyne) 200 mg Q8 PO Last administered on 08/09/18 06:02; Admin Dose 200 MG; Start 08/05/18 at 14:30 Acetaminophen/ Hydrocodone Bitart ([place] (5/325)) 1 tab Q4H PRN PO PAIN LEVEL 1-5 Last administered on 08/09/18 06:02; Admin Dose 1 TAB; Start 08/05/18 at 19:00 Acetaminophen/ Hydrocodone Bitart ([place] (5/325)) 2 tab Q4H PRN PO PAIN LEVEL 6-10 Last administered on 08/08/18 18:50; Admin Dose 2 TAB; Start 08/05/18 at 19:00 Nifedipine (Procardia Xl) 30 mg BID PO Last administered on 08/09/18 09:11; Admin Dose 30 MG; Start 08/07/18 at 09:00 Ibuprofen (Motrin) 800 mg TID PRN PO PAIN Last administered on 08/09/18 11:30; Admin Dose 800 MG; Start 08/07/18 at 14:00 Amoxicillin (Amoxicillin) 500 mg Q8 PO Last administered on 08/09/18 06:02; Admin Dose 500 MG; Start 08/07/18 at 16:30 Hydralazine HCl (Apresoline) 25 mg Q6H PRN PO SBP>160 DBP>100; Start 08/07/18 at 19:00 Eye Lubricant (Artificial Tears Oph) 2 drop Q6H PRN BOTH EYES DRY EYES Last administered on 08/09/18 11:29; Admin Dose 2 DROP; Start 08/08/18 at 12:30 Assessment/Plan Hospital Course (Demo Recall) 1. -induced hypertension/preeclampsia status post emergent section delivery with ongoing hypertension, slowly improving on oral antihypertensives.-reasonable control and has elevation after only receiving half of labetelol dose this am. Most recently after labetelol and procardia very well controlled. Echo today with NL EF and no sig valve abnl. Trop neg x 2 JESS R now - improved BP 2. Shortness of breath and possible development of pulmonary edema prior to C- section delivery concerning for development of preeclampsia- better - con't auto-diuresis. 3. Headaches with normal MRI revealing no acute abnormalities.-ongoing 4. Short systolic murmur likely physiologically with increased following her - stable. 5. Anemia. 6. Leukocytosis, mild improvement. 7. Hypertriglyceridemia-mild. With good LDL/HDL profile MAYKEL MALLORY MD August 09, 2018 12:26
--- NOTE | 2018-08-09 12:34 | RADRPT ---
Echocardiogram Report Patient Name: GENET FLORESPatient ID: [id number] : 1985 (32y 10m)Study Date: 08/07/2018 8:39:59 PM Gender: FAccession #: [id number] Tech: Location: [facility] Ref.Physician: BLAINE PERDUE Height(Cm): 160 BSA: 1.92Weight(Kg): 82.6 Quality: AdequateOrder Physician: BLAINE PERDUE Account #: Procedures: Echocardiographic Report: Transthoracic echocardiogram with 2D, M-Mode, and Doppler examination, poor subcostal images. Indications: Hypertension, and Shortness of breath. Measurements: 2D/M Mode Doppler Measurement Value Normal Range Measurement Value Normal Range LVIDd 2D 3.8 [ 3.8 - 5.2 ] cm AV Peak Josef 1.5 [ 100.0 - 170.0 ] cm/se c LVIDs 2D 2.5 [ 2.2 - 3.5 ] cm AV Peak PG 9.0 [ 2.0 - 9.0 ] mmHg LVPWd 2D 1.0 [ 0.6 - 0.9 ] cm LVOT Peak Josef 0.9 [ 70.0 - 110.0 ] cm/sec IVSd 2D 1.0 [ 0.6 - 0.9 ] cm LVOT Peak PG 3.0 [ 2.0 - 6.0 ] mmHg AoR Diam 2D 3.1 [ 2.3 - 3.1 ] cm MV E Peak Josef 0.7 [ 60.0 - 130.0 ] cm/sec EDV 2D 63.9 [ 46.0 - 106.0 ] ml MV A Peak Josef 0.4 [ 100.0 - 120.0 ] cm/se c ESV 2D 23.0 [ 14.0 - 42.0 ] ml MV E/A 1.7 [ 0.8 - 1.5 ] ratio EF 2D 64.0 [ 54.0 - 74.0 ] percent MV PHT 92.0 [ 20.0 - 100.0 ] msec LA Dimen 2D 2.7 [ 2.7 - 3.8 ] cm MV Decel Time 314 [ 104 - 258 ] msec MV Decel [place] 2 Lat E` Josef 0.2 [ 10.0 - 15.0 ] cm/sec Lateral E/E` 4.2 [ 1.0 - 2.0 ] ratio Med E` Josef 0.1 cm/sec MV E/A 1.7 [ 0.8 - 1.5 ] ratio MVA PHT 2.4 [ 2.0 - 4.0 ] cm2 PV Peak Josef 1.0 [ 40.0 - 80.0 ] cm/sec PV Peak PG 4.0 mmHg Findings: Left Ventricle: Normal left ventricular systolic function, in the parasternal short axis level of the MV there appears to a small area of dyskinesis in the anterior region, this is not seen clearly in any apical view. Normal left ventricular cavity size. Mild concentric left ventricular hypertrophy. Ejection fraction is visually estimated at 55-60 %. Tissue Doppler/Mitral Doppler indices are within normal limits. E/E'= 8. Right Ventricle: Normal right ventricular size. Normal right ventricular systolic function. Left Atrium: The left atrium is normal in size. Right Atrium: The right atrium is normal in size. Atrial Septum: Not well visualized. Mitral Valve: Normal appearance and function of the mitral valve with trace physiologic regurgitation. Aortic Valve: No significant aortic stenosis or insufficiency. Normal trileaflet aortic valve structure. Tricuspid Valve: Normal appearance and function of the tricuspid valve with trace physiologic regurgitation. Pulmonic Valve: Normal pulmonic valve appearance. Pericardium: Normal pericardium with no significant pericardial effusion. Aorta: Normal aortic root. IVC: Normal size and normal respiratory collapse consistent with normal right atrial pressure. Pulmonary Artery: Normal pulmonary artery size. Conclusions: Normal left ventricular systolic function, in the parasternal short axis level of the MV there appears to a small area of dyskinesis in the anterior region, this is not seen clearly in any apical view. Normal left ventricular cavity size. Mild concentric left ventricular hypertrophy. Ejection fraction is visually estimated at 55-60 %. Tissue Doppler/Mitral Doppler indices are within normal limits. E/E'= 8. Normal appearance and function of the mitral valve with trace physiologic regurgitation. Normal appearance and function of the tricuspid valve with trace physiologic regurgitation. Electronically Signed By: Blaine Perdue 2018-08-08 13:39:04 PDT
--- NOTE | 2018-08-09 19:43 | QN ---
Documentation Comment No complaint. Headache resolved. Afebrile BP improved Abdomen soft Incision intact Labs improving Stable Continue present care. SHANTA LOREDO MD August 09, 2018 19:43
[2018-08-10] VITALS (7 sets, daily range): BP systolic 112–141; BP diastolic 74–98; PULSE 70–84; RESP 17–18
[2018-08-10] MEDS: LABETALOL 200 MG TAB PO SCH ×2 (05:54→13:32)
[2018-08-10] MEDS: AMOXICILLIN 500 MG CAP PO SCH ×2 (05:54→13:31)
[2018-08-10] MEDS: IBUPROFEN 800 MG TAB PO PRN ×2 (05:54→13:32)
[2018-08-10] MEDS: SENNA/DOCUSATE NA (8.6MG/50MG) TAB PO SCH (09:00)
--- NOTE | 2018-08-10 09:05 | RADRPT ---
Vent Rate: 74 bpm RR Interval: 804 msec AR Interval: 142 msec QRS Duration: 80 msec QT Interval: 382 msec QTC Interval: 426 msec P-R-T [place]: 46 - 53 - 48 degrees Sinus rhythm...normal Electronically Signed By: David Zepeda
[2018-08-10] MEDS: NIFEdipine (XL) 30 MG TAB PO SCH (09:20)
--- NOTE | 2018-08-10 18:57 | DS ---
Date/Time of Note Date/Time of Note DATE: 08/10/18 TIME: 18:55 Obstetrical Discharge Record Final Diagnosis Final Diagnosis: delivered Other Final Diagnosis Preeclampsia with severe features Section Section: Primary Primary Indication Preeclampsia with severe features Complications Preg induced Hypertension Condition on Discharge Physical Assessment Voiding: Yes Bowel Movement: Yes Breast: Soft, non-tender, Filling Fundus: Firm Abdomen and Incision: Incision intact Calf Tenderness: No Patient Condition: Stable SHANTA LOREDO MD August 10, 2018 18:57
[2018-08-11] MEDS ORDERED: NIFE30TA23 PO ×2 (12:53→16:19)
[2018-08-11] MEDS ORDERED: IBUP800T48 PO (16:19)
== END 2018-08-10 20:45 | disposition home or self-care (01) | DRG 786 ==
LOC: OBT 12:47 → L-D 12:47 → OBT 13:00 → L-D 13:29 → ICU 14:49 → PP1 08-06 14:55
PROVIDERS: ADMIT Obstetrics & Gynecology; ATTEND Obstetrics & Gynecology
PROC: 10D00Z1 Extraction of Products of Conception, Low, Open Approach (ICD-10-PCS; principal; 2018-08-04)
DX: O14.13 Severe pre-eclampsia, third trimester (principal); J81.0 Acute pulmonary edema; O99.513 Diseases of the respiratory system complicating pregnancy, third trimester; R06.03 Acute respiratory distress; O13.3 Gestational [pregnancy-induced] hypertension without significant proteinuria, third trimester; O90.81 Anemia of the puerperium; D64.9 Anemia, unspecified; D72.829 Elevated white blood cell count, unspecified; E78.1 Pure hyperglyceridemia; G89.18 Other acute postprocedural pain; R01.1 Cardiac murmur, unspecified; Z3A.30 30 weeks gestation of pregnancy; Z37.0 Single live birth
CPT/HCPCS: 70551; 71045; 80053; 80061; 81001; 82962; 83735; 84484; 84560; 85025; 85384; 85610; 85730; 86592; 86850; 86900; 86901; 87081; 87086; 87340; 88307; 93005; 93306; 99464; J0360; J0690; J1170; J1200; J1885; J1940; J2405; J2590; J2765; J2795; J3475; J7120

== ENCOUNTER 2018-08-11 11:57 | Inpatient (IN) | payer BC, MEDICAID ==
[~2018-08-11] VITALS: Ht 160 cm; Wt 74.5 kg
[2018-08-11] MEDS ORDERED: MAGNESIUM SULFATE 2 GM/50 ML 50 ML IVPB ONE (12:30)
[2018-08-11] MEDS ORDERED: LABETALOL HCL 20MG INJ IV ONE ×2 (12:30→17:00)
[2018-08-11] MEDS ORDERED: NIFE30TA23 PO ×2 (12:53→16:19)
--- NOTE | 2018-08-11 13:00 | ERD ---
ER Documentation Chief Complaint Chief Complaint HYPERTENSION WITH CHEST PAIN X1WEEK X1WK AGO HPI This is a very pleasant 32-year-old female who had recent hospitalization for preeclampsia prompting delivery of a 29-week infant. The patient was recently discharged. A routine follow-up today her blood pressure was in the 150-160 range. She was having some chest discomfort. No significant headache. The patient was sent to the emergency room. A triage her blood pressure was in the 150 range. When placed in the room it was in the 140 range. She still describes some mild substernal discomfort that is nonpleuritic, nonradiating. Patient did have cardiac work-up during her recent hospitalization that was unremarkable. She denies any significant lower extremity swelling. ROS All systems reviewed and are negative except as per history of present illness. Medications Home Meds Reported Medications Nifedipine* (Nifedipine ER*) 30 Mg Tablet.sa, 30 MG PO DAILY, TAB.SA 08/11/18 Allergies Allergies: Coded Allergies: No Known Allergy (Unverified , 08/11/18) PMhx/Soc History of Surgery: Yes ( 08-04-18) Anesthesia Reaction: No Hx Neurological Disorder: No Hx Respiratory Disorders: No Hx Cardiac Disorders: No Hx Psychiatric Problems: No Hx Miscellaneous Medical Probl: No ([id number]) Hx Alcohol Use: No Hx Substance Use: No Hx Tobacco Use: No Smoking Status: Never smoker FmHx Family History: No diabetes Physical Exam Vitals Vital Signs Date Temp Pulse Resp B/P (MAP) Pulse Ox O2 O2 Flow FiO2 Time Delivery Rate 08/11/18 99.2 91 20 137/96 99 Room Air 12:25 (110) 08/11/18 99.2 91 20 167/101 97 12:02 (123) Physical Exam General: Well developed, well nourished, no acute distress Head: Normocephalic, atraumatic. Eyes: Pupils equally reactive, EOM intact ENT: Moist mucous membranes Neck: Supple, no lymphadenopathy Respiratory: Lungs clear bilaterally, no distress Cardiovascular: RRR, no murmurs, rubs, or gallops Abdominal: Soft, non-tender, non-distended, no peritoneal signs : Deferred MSK: No edema, no unilateral swelling, 5/5 strength Neurologic: Alert and oriented, moving all extremities, normal speech, no focal weakness, no cerebellar signs Skin: No rash Psych: Normal mood Result Diagram: 08/11/18 1245 08/11/18 1245 Results 24 hrs Laboratory Tests Test 08/11/18 12:45 White Blood Count 10.0 10^3/ul Red Blood Count 4.05 10^6/ul Hemoglobin 12.2 g/dl Hematocrit 37.2 % Mean Corpuscular Volume 91.9 fl Mean Corpuscular Hemoglobin 30.1 pg Mean Corpuscular Hemoglobin Concent 32.8 g/dl Red Cell Distribution Width 14.7 % Platelet Count 284 10^3/UL Mean Platelet Volume 9.1 fl Immature Granulocytes % 1.100 % Neutrophils % 76.9 % Lymphocytes % 12.8 % Monocytes % 7.0 % Eosinophils % 1.7 % Basophils % 0.5 % Nucleated Red Blood Cells % 0.0 /100WBC Immature Granulocytes # 0.110 10^3/ul Neutrophils # 7.7 10^3/ul Lymphocytes # 1.3 10^3/ul Monocytes # 0.7 10^3/ul Eosinophils # 0.2 10^3/ul Basophils # 0.1 10^3/ul Nucleated Red Blood Cells # 0.0 10^3/ul Sodium Level 141 mmol/L Potassium Level 4.2 mmol/L Chloride Level 110 mmol/L Carbon Dioxide Level 23 mmol/L Anion Gap 8 Blood Urea Nitrogen 16 mg/dl Creatinine 0.52 mg/dl Est Glomerular Filtrat Rate mL/min > 60 mL/min Glucose Level 98 mg/dl Calcium Level 9.1 mg/dl Magnesium Level 1.8 mg/dl Total Bilirubin 0.5 mg/dl Direct Bilirubin 0.00 mg/dl Indirect Bilirubin 0.5 mg/dl Aspartate Amino Transf (AST/SGOT) 112 IU/L Alanine Aminotransferase (ALT/SGPT) 129 IU/L Alkaline Phosphatase 129 IU/L Troponin I < 0.012 ng/ml Total Protein 7.7 g/dl Albumin 3.8 g/dl Globulin 3.90 g/dl Albumin/Globulin Ratio 0.97 Current Medications Medications Dose Sig/Dayana Start Time Status Last (Trade) Ordered Route PRN Stop Time Admin Dose Reason Admin Magnesium 50 ml @ 25 ONCE ONCE 08/11/18 08/11/18 Sulfate mls/hr IVPB 12:30 12:51 08/11/18 14:29 Labetalol 10 mg ONCE ONCE 08/11/18 DC HCl IV 12:30 (Labetalol) 08/11/18 12:31 Ondansetron 4 mg ER BRIDGE 08/11/18 HCl (Zofran PRN IV 14:00 Inj) NAUSEA/VOMITI 08/12/18 13:59 NG 650 mg ER BRIDGE 08/11/18 Acetaminophen PRN PO 14:00 (Tylenol .MILD PAIN 08/12/18 13:59 Tab) 1-3 OR TEMP Procedures/MDM EKG, MONITORS, & DIAGNOSTIC IMAGING: EKG: I reviewed and interpreted a 12-lead EKG. Rhythm: Normal sinus rhythm ST Changes: No contiguous ST segment elevations T waves: No contiguous T wave inversions Impression: [No evidence of acute cardiac ischemia] Chest x-ray: I reviewed and interpreted a 1 view of the chest Mediastinum: No enlargement Cardiac silhouette: No cardiomegaly Airspace: Clear lung lindquist bilaterally without evidence of pneumothorax Bones: No evidence of fracture LAB INTERPRETATION: I reviewed the laboratory testing and it shows mild transaminitis MEDICAL DECISION MAKING: The patient presents with hypertension and chest pain with a recent diagnosis of preeclampsia. The patient is not having any significant headache and has no lower extremity pitting edema. Chest pain is nonspecific. She had recent work- up for cardiogenic etiology. Her chest pain is nonpleuritic and does not seem to be consistent with pulmonary embolism. Lower clinical concern for cardiomyopathy. The patient had a significant episode of preeclampsia and still has elevated blood pressure. Unfortunately at this time I do believe he would benefit from further blood pressure control and magnesium therapy. An emergent phone call was placed to Dr. Chaparro, her managing [employer]. He agrees with the plan of care including labetalol as well as magnesium. He recommends admission and would like Dr. Perdue, cardiology to follow. The patient's blood pressure did improve prior to initiation of labetalol therapy. Labetalol was held. Magnesium provided. ER COURSE: * Patient continues to be well-appearing, blood pressure remains in the 130 range. I spoke to Dr. Perdue. He agrees with plan of care. * Patient will be admitted for further management as documented above CONSULTATION: STATION MECHANIC: Dr. Chaparro Cardiology: Dr. Perdue DISPOSITION PLAN: Telemetry admission for further monitoring of -induced hypertension and preeclampsia Accepting care team and consultations: I discussed the current laboratory data, diagnostic imaging and emergency care provided. Admitting team: Dr. Chaparro Admitting team indication: Insurance directed Departure Diagnosis: Primary Impression: Preeclampsia in period Additional Impressions: Chest pain Chest pain type: unspecified Qualified Codes: R07.9 - Chest pain, unspecified Transaminitis Condition: Stable Patient Instructions: Chest Pain, Noncardiac (Toddler) FEDERICA SPENCE MD August 11, 2018 13:00
[2018-08-11] MEDS ORDERED: ONDANSETRON 4 MG INJ IV PRN (14:00)
[2018-08-11] MEDS ORDERED: ACETAMINOPHEN 325 MG TAB PO PRN (14:00)
[2018-08-11 16:19] VITALS: PULSE 78
[2018-08-11] MEDS ORDERED: IBUP800T48 PO (16:19)
[2018-08-11 16:29] VITALS: BP 164/87; PULSE 87; RESP 18
[2018-08-11 16:30] VITALS: Ht 160 cm; Wt 74.5 kg
[2018-08-11 20:00] VITALS: BP 137/88; PULSE 84; PULSE 87; RESP 18
[2018-08-11] MEDS ORDERED: hydrALAzine 20 MG INJ IV PRN (20:00)
[2018-08-11] MEDS: NIFEdipine (XL) 30 MG TAB PO SCH (20:21)
[2018-08-11] MEDS: IBUPROFEN 800 MG TAB PO PRN (20:24)
[2018-08-11] MEDS: LABETALOL 200 MG TAB PO SCH (21:24)
[2018-08-12] VITALS (10 sets, daily range): BP systolic 110–136; BP diastolic 62–87; PULSE 69–99; RESP 16–19
--- NOTE | 2018-08-12 00:26 | CONS ---
DATE OF ADMISSION: 08/11/2018 DATE OF CONSULTATION: 08/11/2018 REASON FOR CONSULTATION: Chest pain, hypertension. REQUESTING PHYSICIAN: Shanta Chaparro M.D. from the obstetrics and gynecology service. HISTORY OF PRESENT ILLNESS: Ms. Wyatt is a very pleasant 32-year-old female with a history of recent delivery on 08/04/2018, emergent after patient had developed pre-eclampsia symptoms with lower extremity edema and uncontrolled systolic blood pressures and subsequently delivered a healthy 29- week . Postoperatively, the patient continued to have elevated systolic blood pressures and required initiation of labetalol and then subsequently Procardia for improvement in systolic blood pressure. I assisted in the patient's management during her previous hospitalization during which time she also underwent a 2D echo revealing preserved EF with no significant valve abnormalities and a negative troponin x3. The patient was discharged to outpatient followup on the 08/10/2018 and today had presented to her primary physician's office, Dr. Shanta Chaparro for removal of her son and during that time was noted to have significantly elevated systolic blood pressures of 153/107. The patient did complain of substernal chest pains, described it as a pressure-like to stabbing sensation, located in the mid portion of his chest, occurring at rest and mild shortness of breath. Given these findings, the patient was referred to [facility] Emergency Department where upon arrival, temperature was 99.2, blood pressure of 167/101, pulse 99, respiratory rate 20, sat 97%. The patient's labs were notable for a white blood cell count of 10, hemoglobin 12.2, platelet count 284, a sodium 141, potassium 4.2, creatinine 0.52, BUN 16, AST 112, ALT 129, alkaline phosphatase 129. Troponin negative. The patient's electrocardiogram revealed a normal sinus rhythm, rate of 83, normal axis, normal intervals, with isolated T-wave inversion and lead V2. The patient has been admitted to the floor and has been treated with magnesium, labetalol 10 mg IV push #1 followed by 20 mg IV push #1. Since arrival on the floor, patient denies ongoing chest pain and has started on baseline Procardia 30 mg p.o. b.i.d., labetalol 200 mg p.o. q. with p.r.n. labetalol. PAST MEDICAL HISTORY: As above in HPI. MEDICATIONS CURRENTLY IN HOSPITAL: 1. Labetalol 200 mg p.o. q.8. 2. Procardia 30 mg p.o. b.i.d. 3. Ibuprofen p.r.n. 4. Zofran p.r.n. 5. Tylenol p.r.n. ALLERGIES: NO KNOWN DRUG ALLERGIES. SOCIAL HISTORY: No current tobacco, ETOH or illicit drug use. FAMILY HISTORY: No history of cardiac or early CAD. REVIEW OF SYSTEMS: As above in HPI. CONSTITUTIONAL: No fevers, chills. PULMONARY: Intermittent shortness of breath. CARDIOVASCULAR: Chest pain, currently resolved. GASTROINTESTINAL: No vomiting. GENITOURINARY: Status post section in 04/2018. MUSCULOSKELETAL: Generalized myalgias. PSYCHIATRIC: No documented psych history. NEUROLOGIC: No documented history of CVA. ENDOCRINE: No documented history of diabetes mellitus. PHYSICAL EXAMINATION: VITAL SIGNS: Temperature of 98.3, blood pressure 160/87, pulse 87, respiratory rate was 18, satting 98%. GENERAL: The patient is alert, awake, no acute distress. NECK: JVP approximately 8 to 9 cm of water. CHEST: Fair air movement throughout. HEART: Regular rate and rhythm. Normal S1, S2, grade I/ systolic murmur, nondisplaced PMI. ABDOMEN: Positive bowel sounds, soft. EXTREMITIES: No significant pitting edema, 1+ pulses bilaterally to posterior tibial. LABORATORY DATA: As above in HPI. No further labs for my review at this time. IMAGING STUDIES: Chest x-ray from today revealed mild bibasilar atelectasis. ELECTROCARDIOGRAM: As above in HPI. No further electrograms for my review at this time. IMPRESSION: 1. Hypertension, ongoing post section delivery with history of pre- eclampsia, necessitating emergent delivery. 2. Abnormal liver function tests and mild decrease from previous. 3. Status post section delivery on 08/04/2018. 4. Abnormal echocardiogram with isolated T-wave inversion in V2. 5. Intermittent shortness of breath. RECOMMENDATIONS: 1. At this time, we would maintain patient on telemetry monitoring to follow rhythm and rate closely. 2. We would continue to check serial EKGs to assess for any ongoing changes. Therefore, a repeat EKG in the morning, EKG for any complaints of chest pain or change in rhythm. 3. We will continue to follow the patient's chest pain closely and we will complete a rule out for myocardial infarction to ensure the patient's chest pain is not due to an acute coronary syndrome,such as an acute myocardial infarction, unlikely in this young female. Although the patient is at increased risk from her state of for a coronary dissection, but unlikely at this time,given gthe patient's resolution of pain. 4. We would additionally consider a D-dimer just to assure the patient has not had any pulmonary embolus, although unlikely given the patient's lack of lower extremity edema or significant physical exam findings. 5. Continue to follow the patient's LFTs closely. Consider a right upper quadrant ultrasound to further evaluate. 6. We will continue the patient's current labetalol and Procardia at this time, and we will attempt to titrate the patient's Procardia, possibly to control the patient's blood pressure on a single agent. 7. We will additionally write for IV push p.r.n. hydralazine as necessary to acutely improve systolic blood pressure. Thank you for allowing me to take part in the care of this patient. I will continue to follow her along very closely with you with further recommendations to be made as the patient progresses through inpatient hospital clinical course. Dictated By: BLAINE LOPEZ/JEWELL Conf#: [id number] DID#: [id number] CC: SHANTA CHAPARRO MD; WILFREDO CONTI MD;*EndCC* MTDD
[2018-08-12] MEDS: LABETALOL 200 MG TAB PO SCH ×3 (05:54→21:18)
--- NOTE | 2018-08-12 07:05 | RADRPT ---
Vent Rate: 74 bpm RR Interval: 816 msec NE Interval: 154 msec QRS Duration: 79 msec QT Interval: 399 msec QTC Interval: 442 msec P-R-T [place]: 48 - 78 - 54 degrees Sinus rhythm...normal Electronically Signed By: David Zepeda
[2018-08-12] MEDS: NIFEdipine (XL) 30 MG TAB PO SCH (08:44)
[2018-08-12] MEDS: IBUPROFEN 800 MG TAB PO PRN ×2 (08:44→21:19)
--- NOTE | 2018-08-12 16:41 | HP ---
DATE OF ADMISSION: 08/11/2018 CHIEF COMPLAINT: Chest pain. HISTORY OF PRESENT ILLNESS: A 32-year-old female 5, para 4, AB 1, presented to the emergency department with complaint of chest pain. Patient with recent history of hospitalization. The patie nt was admitted on 08/04/2018 due to preeclampsia with severe features and underwent an emergency simona arean section. During the period, the patient was initially in intensive care unit and wa s given magnesium sulfate for seizure prophylaxis. The patient was also on labetalol and Procardia t o control her blood pressure. The patient had a workup by oenologist during the previous hospital admission and the patient's blood pressure had improved on oral antihypertensive medication. The pat steve was discharged on 08/10/2018 with followup on 08/11/2018 in the clinic. During the followup vis it, the patient complained of chest pain and was noted to have elevated blood pressure. The patient was referred to the emergency department and from there, she was admitted to telemetry. PAST MEDICAL HISTORY: As in history of present illness. PAST SURGICAL HISTORY: section. ALLERGIES: NO KNOWN ALLERGIES. FAMILY HISTORY: Noncontributory. PHYSICAL EXAMINATION: VITAL SIGNS: The patient is afebrile. Systolic blood pressure 160s, diastolics 90s and 100s. ABDOMEN: Soft, nontender, nondistended and incision is healing well. PELVIC: Normal . EXTREMITIES: Within normal limits. NEUROLOGIC: Within normal limits. IMPRESSION: 1. History of preeclampsia with severe features. 2. Chest pain. PLAN: Admit to telemetry. Give labetalol and Procardia to control blood pressure. Cardiology consu lt for management in telemetry. Dictated By: SHANTA PITTMAN/JEWELL Conf#: [id number] DID#: [id number]
[2018-08-12] MEDS: NIFEdipine (XL) 60 MG TAB PO SCH (21:19)
[2018-08-13 02:21] VITALS: BP 127/69; PULSE 82; RESP 18
[2018-08-13] MEDS: LABETALOL 200 MG TAB PO SCH ×3 (05:11→20:04)
[2018-08-13 07:36] VITALS: BP 101/56; PULSE 76; RESP 14
[2018-08-13] MEDS: NIFEdipine (XL) 30 MG TAB PO SCH (08:03)
--- NOTE | 2018-08-13 12:57 | CONS ---
Consult Date/Type/Reason Admit Date/Time August 11, 2018 at 13:48 Initial Consult Date Date/Time of Note DATE: 08/13/18 TIME: 12:57 Subjective Pt not in the room, went to see her baby - Vs reviewed - hold BB now - BP on low side Objective Vitals Vital Signs Date Temp Pulse Resp B/P (MAP) Pulse Ox O2 O2 Flow FiO2 Time Delivery Rate 08/13/18 98.5 76 14 101/56 96 07:36 (71) 08/12/18 Room Air 04:06 Intake and Output 08/12/18 08/12/18 08/13/18 1515:00 23:00 07:00 IntakeIntake Total 1680 ml BalanceBalance 1680 ml Results/Medications Result Diagram: 08/13/18 0430 08/13/18 0430 Results 24 hrs Laboratory Tests Test 08/13/18 04:30 White Blood Count 7.4 # Red Blood Count 4.24 Hemoglobin 12.6 Hematocrit 39.5 Mean Corpuscular Volume 93.2 Mean Corpuscular Hemoglobin 29.7 Mean Corpuscular Hemoglobin Concent 31.9 L Red Cell Distribution Width 14.8 H Platelet Count 346 # Mean Platelet Volume 9.0 Immature Granulocytes % 1.100 H Neutrophils % 59.8 Lymphocytes % 27.2 Monocytes % 7.9 Eosinophils % 3.5 Basophils % 0.5 Nucleated Red Blood Cells % 0.0 Immature Granulocytes # 0.080 H Neutrophils # 4.4 Lymphocytes # 2.0 Monocytes # 0.6 Eosinophils # 0.3 Basophils # 0.0 Nucleated Red Blood Cells # 0.0 Sodium Level 140 Potassium Level 4.1 Chloride Level 111 H Carbon Dioxide Level 24 Anion Gap 5 Blood Urea Nitrogen 15 Creatinine 0.53 Est Glomerular Filtrat Rate mL/min > 60 Glucose Level 100 Uric Acid 4.0 Calcium Level 9.0 Total Bilirubin 0.4 Direct Bilirubin 0.00 Indirect Bilirubin 0.4 Aspartate Amino Transf (AST/SGOT) 65 H Alanine Aminotransferase (ALT/SGPT) 107 H Alkaline Phosphatase 120 Total Protein 7.2 Albumin 3.6 Globulin 3.60 H Albumin/Globulin Ratio 1.00 Home Meds Reported Medications Ibuprofen* (Motrin*) 800 Mg Tab, 800 MG PO Q8 PRN for PAIN, TAB 08/11/18 Nifedipine* (Nifedipine ER*) 30 Mg Tablet.sa, 30 MG PO BID, TAB.SA 08/11/18 Nifedipine* (Nifedipine ER*) 30 Mg Tablet.sa, 30 MG PO DAILY, TAB.SA 08/11/18 Medications Current Medications Labetalol HCl (Normodyne) 200 mg Q8 PO Last administered on 08/13/18at 05:11; Admin Dose 200 MG; Start 08/11/18 at 22:00 Ibuprofen (Motrin) 800 mg Q8 PRN PO MILD PAIN LEVEL 1-3 Last administered on 08/12/18at 21:19; Admin Dose 800 MG; Start 08/11/18 at 17:00 Hydralazine HCl (Apresoline) 10 mg Q4H PRN IV SBP>160 DBP>100; Start 08/11/18 at 20:00 Nifedipine (Procardia Xl) 30 mg AM PO ; Start 08/13/18 at 09:00 Nifedipine (Procardia Xl) 60 mg HS PO Last administered on 08/12/18at 21:19; Admin Dose 60 MG; Start 08/12/18 at 21:00 MAYKEL MALLORY MD Aug 13, 2018 12:57
[2018-08-13] MEDS: IBUPROFEN 800 MG TAB PO PRN ×2 (14:19→22:39)
[2018-08-13 14:26] VITALS: BP 146/87; PULSE 75; RESP 16
--- NOTE | 2018-08-13 17:02 | QN ---
Documentation Comment No complaint Afebrile BP improving Continue care per Cardiology. SHANTA LOREDO MD Aug 13, 2018 17:02
[2018-08-13 19:04] VITALS: BP 135/82; PULSE 77
[2018-08-13 20:00] VITALS: BP 131/81; PULSE 81; RESP 19
[2018-08-13] MEDS: NIFEdipine (XL) 60 MG TAB PO SCH (20:36)
[2018-08-14 02:00] VITALS: BP 127/71; PULSE 83; RESP 18
[2018-08-14] MEDS: LABETALOL 200 MG TAB PO SCH ×2 (06:00→14:00)
[2018-08-14 06:28] VITALS: BP 131/75; PULSE 70
[2018-08-14 07:46] VITALS: BP 132/77; PULSE 78; RESP 16
[2018-08-14] MEDS: IBUPROFEN 800 MG TAB PO PRN (08:59)
[2018-08-14] MEDS: NIFEdipine (XL) 30 MG TAB PO SCH (08:59)
--- NOTE | 2018-08-14 13:36 | QN ---
Documentation Comment No complaint Afebrile VS Continue care per Cardiology SHANTA LOREDO MD Aug 14, 2018 13:36
--- NOTE | 2018-08-14 14:12 | CONS ---
Consult Date/Type/Reason Admit Date/Time August 11, 2018 at 13:48 Initial Consult Date Date/Time of Note DATE: 08/14/18 TIME: 14:10 Subjective No acute events - pt doing well- BP con't to improve - off BB now - OK to d/c with procardia 30 days - will follow as outpt. ROS: No fever, no chills, no nausea, no vomiting, no diarrhea/constipation No recent weight changes No chest pain, no PND, no orthopnea No dizziness, blurred vision No thirst, no heat or cold intolerance Objective Vitals Vital Signs Date Temp Pulse Resp B/P (MAP) Pulse Ox O2 O2 Flow FiO2 Time Delivery Rate 08/14/18 98.4 78 16 132/77 98 07:46 (95) 08/12/18 Room Air 04:06 Intake and Output 08/13/18 08/13/18 08/14/18 1515:00 23:00 07:00 IntakeIntake Total 1080 ml 480 ml 800 ml BalanceBalance 1080 ml 480 ml 800 ml Exam General: WN/WD/NAD, AOx 3 HEENT: Unicetric/atraumatic/EOMI (t follow commands) NECK: JVD elevated, no thyromegaly Lymph: no lymphadenopathy HEART: regular with no S3, II/ systolic murmur at apex LUNGS: Coarse sounds ABD: soft, NT, ND, +BS : Intact Neuro: non focal SKIN: chronic changes EXT: trace edema Results/Medications Result Diagram: 08/14/18 1213 08/14/18 1213 Results 24 hrs Laboratory Tests Test 08/14/18 12:13 White Blood Count 7.6 Red Blood Count 4.49 Hemoglobin 13.6 Hematocrit 41.5 Mean Corpuscular Volume 92.4 Mean Corpuscular Hemoglobin 30.3 Mean Corpuscular Hemoglobin Concent 32.8 Red Cell Distribution Width 14.3 Platelet Count 460 #H Mean Platelet Volume 9.3 Immature Granulocytes % 0.700 H Neutrophils % 64.2 Lymphocytes % 26.0 Monocytes % 5.8 Eosinophils % 2.9 Basophils % 0.4 Nucleated Red Blood Cells % 0.0 Immature Granulocytes # 0.050 H Neutrophils # 4.9 Lymphocytes # 2.0 Monocytes # 0.4 Eosinophils # 0.2 Basophils # 0.0 Nucleated Red Blood Cells # 0.0 Sodium Level 142 Potassium Level 4.0 Chloride Level 110 Carbon Dioxide Level 21 Anion Gap 11 Blood Urea Nitrogen 14 Creatinine 0.47 Est Glomerular Filtrat Rate mL/min > 60 Glucose Level 102 Calcium Level 9.3 Total Bilirubin 0.5 Direct Bilirubin 0.00 Indirect Bilirubin 0.5 Aspartate Amino Transf (AST/SGOT) 42 Alanine Aminotransferase (ALT/SGPT) 72 H Alkaline Phosphatase 135 H Total Protein 8.7 H Albumin 4.3 Globulin 4.40 H Albumin/Globulin Ratio 0.97 Home Meds Reported Medications Ibuprofen* (Motrin*) 800 Mg Tab, 800 MG PO Q8 PRN for PAIN, TAB 08/11/18 Nifedipine* (Nifedipine ER*) 30 Mg Tablet.sa, 30 MG PO BID, TAB.SA 08/11/18 Nifedipine* (Nifedipine ER*) 30 Mg Tablet.sa, 30 MG PO DAILY, TAB.SA 08/11/18 Medications Current Medications Labetalol HCl (Normodyne) 200 mg Q8 PO Last administered on 08/13/18at 05:11; Admin Dose 200 MG; Start 08/11/18 at 22:00 Ibuprofen (Motrin) 800 mg Q8 PRN PO MILD PAIN LEVEL 1-3 Last administered on 08/14/18at 08:59; Admin Dose 800 MG; Start 08/11/18 at 17:00 Hydralazine HCl (Apresoline) 10 mg Q4H PRN IV SBP>160 DBP>100; Start 08/11/18 at 20:00 Nifedipine (Procardia Xl) 30 mg AM PO Last administered on 08/14/18at 08:59; Admin Dose 30 MG; Start 08/13/18 at 09:00 Nifedipine (Procardia Xl) 60 mg HS PO Last administered on 08/13/18at 20:36; Admin Dose 60 MG; Start 08/12/18 at 21:00 Assessment/Plan Hospital Course (Demo Recall) 1. Hypertension, ongoing post section delivery with history of pre- eclampsia, necessitating emergent delivery - better now, dispo planned with Procardia only. 2. Abnormal liver function tests and mild decrease from previous.- improved clinically,. 3. Status post section delivery on 08/04/2018 - baby in NICU now, doing OK. 4. Abnormal echocardiogram with isolated T-wave inversion in V2. 5. Intermittent shortness of breath- resolved. MAYKEL MALLORY MD Aug 14, 2018 14:12
[2018-08-14 15:00] VITALS: BP 144/93; PULSE 84; RESP 16
--- NOTE | 2018-08-20 16:59 | DS ---
Date/Time of Note Date/Time of Note DATE: 08/20/18 TIME: 16:54 Discharge Summary Admission/Discharge Info Admit Date/Time August 11, 2018 at 13:48 Discharge Date/Time Aug 14, 2018 at 17:00 Discharge Diagnosis preeclampsia Chest pain Patient Condition: Stable Consults Cardiology consult obtained and patient cleared for discharge Hx of Present Illness Status post for preeclampsia with severe features. Patient presented with chest pain and elevated bP. Hospital Course Patient admitted to Telemetry. Cariology consult obtained. Work up done. Patient BP controlled. Patient's chest pain resolved. Home Meds Reported Medications Ibuprofen* (Motrin*) 800 Mg Tab, 800 MG PO Q8 PRN for PAIN, TAB 08/11/18 Nifedipine* (Nifedipine ER*) 30 Mg Tablet.sa, 30 MG PO DAILY, TAB.SA 08/11/18 Discontinued Reported Medications Nifedipine* (Nifedipine ER*) 30 Mg Tablet.sa, 30 MG PO BID, TAB.SA 08/11/18 Follow-up Plan Follow up in clinic on 08/18/2018. Primary Care Provider El Alex Gómez Time spent on discharge: < 30 minutes SHANTA LOREDO MD Aug 20, 2018 16:59
== END 2018-08-14 17:00 | disposition home or self-care (01) | DRG 776 ==
LOC: E/R 11:57 → TEL 13:48 → 2NE 08-12 18:37
PROVIDERS: ADMIT Obstetrics & Gynecology; ATTEND Obstetrics & Gynecology
DX: O16.5 Unspecified maternal hypertension, complicating the puerperium (principal)
CPT/HCPCS: 36415; 71045; 80053; 83735; 84484; 84560; 85025; 93005; 96365; J3475

== ENCOUNTER 2018-08-20 23:17 | Emergency (ER) | payer BC, MEDICAID ==
[~2018-08-20] VITALS: Ht 167.6 cm; Wt 72.3 kg
[~2018-08-20 23:17] MED LIST: IBUP800T48 PO; NIFE30TA23 PO
[2018-08-20 23:23] VITALS: Ht 167.6 cm; Wt 72.3 kg
[2018-08-21] MEDS ORDERED: SOD CHLORIDE 0.9% 100 ML ONE (01:01)
[2018-08-21] MEDS ORDERED: IOHEXOL 100 ML ONE (01:01)
--- NOTE | 2018-08-21 03:02 | ERD ---
ER Documentation Chief Complaint Chief Complaint C/O SOB, NUMBNESS/TINGLING IN FINGERS. WAS ADMITTED FOR HTN/SOB HPI This is a 32-year-old female with no previous medical problems who presents to the ER for evaluation of sudden onset shortness of breath, numbness and tingling in her fingers and mild shortness of breath. The patient states that she has been spending a lot of time with her in the NICU due to the fact that the patient states her child was born premature and they had to do a due to the fact that she developed hypertension preeclampsia. The patient denies any seizure activity, she states that she was driving home and felt the shortness of breath and came to the ER for evaluation. Patient denies any chest pain currently denies any nausea vomiting or blurred vision. ROS All systems reviewed and are negative except as per history of present illness. Medications Home Meds Reported Medications Ibuprofen* (Motrin*) 800 Mg Tab, 800 MG PO Q8 PRN for PAIN, TAB 08/11/18 Nifedipine* (Nifedipine ER*) 30 Mg Tablet.sa, 30 MG PO DAILY, TAB.SA 08/11/18 Discontinued Reported Medications Nifedipine* (Nifedipine ER*) 30 Mg Tablet.sa, 30 MG PO BID, TAB.SA 08/11/18 Allergies Allergies: Coded Allergies: No Known Allergy (Unverified , 08/11/18) PMhx/Soc History of Surgery: Yes (c section 08/04/18) Anesthesia Reaction: No Hx Neurological Disorder: No Hx Respiratory Disorders: No Hx Cardiac Disorders: Yes (HTN) Hx Psychiatric Problems: No Hx Miscellaneous Medical Probl: No Hx Alcohol Use: No Hx Substance Use: No Hx Tobacco Use: No Smoking Status: Never smoker Physical Exam Vitals Vital Signs Date Temp Pulse Resp B/P (MAP) Pulse Ox O2 O2 Flow FiO2 Time Delivery Rate 08/21/18 81 20 111/83 100 Room Air 01:59 (92) 08/20/18 98.4 107 25 139/85 100 23:23 (103) Physical Exam INITIAL VITAL SIGNS: Reviewed by me GENERAL: The patient is well developed and appropriate for usual state of health in no apparent distress HEENT: Pupils equal, round, and reactive to light. EOMI. There is no scleral icterus. NECK: C-spine is soft and supple, there is no meningismus. There is no cervical lymphadenopathy. LUNGS: Clear to auscultation bilaterally. There are no rales, wheezes or rhonchi. HEART: Regular rate and rhythm, no murmurs, clicks, rubs or gallops. ABDOMEN: Soft, non-tender, non-distended. There are bowel sounds in all four quadrants. No rebound or guarding. EXTREMITIES: There is no peripheral cyanosis or edema. No focal swelling or erythema. NEUROLOGICAL: The patient moves all four extremities with 5/5 strength. Cranial nerves II - XII are intact. Normal gait. Alert and oriented SKIN: There is no apparent rash or petechiae. HEME/LYMPHATIC: There is no evidence of excessive bruising or lymphedema. PSYCHIATRIC: The patient does appeared to have a slightly anxious affect Result Diagram: 08/20/18235608/20/187 Results 24 hrs Laboratory Tests Test 08/20/18 23:57 White Blood Count 8.0 10^3/ul Red Blood Count 4.68 10^6/ul Hemoglobin 14.2 g/dl Hematocrit 41.9 % Mean Corpuscular Volume 89.5 fl Mean Corpuscular Hemoglobin 30.3 pg Mean Corpuscular Hemoglobin Concent 33.9 g/dl Red Cell Distribution Width 13.6 % Platelet Count 553 10^3/UL Mean Platelet Volume 8.6 fl Immature Granulocytes % 0.500 % Neutrophils % 50.4 % Lymphocytes % 41.1 % Monocytes % 5.9 % Eosinophils % 1.6 % Basophils % 0.5 % Nucleated Red Blood Cells % 0.0 /100WBC Immature Granulocytes # 0.040 10^3/ul Neutrophils # 4.1 10^3/ul Lymphocytes # 3.3 10^3/ul Monocytes # 0.5 10^3/ul Eosinophils # 0.1 10^3/ul Basophils # 0.0 10^3/ul Nucleated Red Blood Cells # 0.0 10^3/ul D-Dimer 944.71 ng/ml D-Dimer Comment Sodium Level 142 mmol/L Potassium Level 3.5 mmol/L Chloride Level 106 mmol/L Carbon Dioxide Level 24 mmol/L Anion Gap 12 Blood Urea Nitrogen 12 mg/dl Creatinine 0.59 mg/dl Est Glomerular Filtrat Rate mL/min > 60 mL/min Glucose Level 115 mg/dl Calcium Level 10.1 mg/dl Troponin I < 0.012 ng/ml Current Medications Medications Dose Sig/Dayana Start Time Status Last (Trade) Ordered Route PRN Stop Time Admin Dose Reason Admin IV Flush 10 ml STK-MED 08/21/18 DC 08/21/18 (NS 10 ml) ONCE .ROUTE 01:01 08/21/18 01:14 01:02 Sodium 100 ml @ ud STK-MED 08/21/18 DC 08/21/18 Chloride ONCE .ROUTE 01:08/21/18 01:14 01:02 Iohexol 100 ml @ ud STK-MED 08/21/18 DC 08/21/18 ONCE .ROUTE 01:08/21/18 01:14 01:02 Procedures/MDM EKG: Rate/Rhythm: [Normal Sinus Rhythm] QRS, ST, T-waves: [No changes consistent w/ acute ischemia] Impression: [No evidence of ischemia or arrhythmia] Chest X-ray 1V Interpreted by me: Soft Tissue: No acute abnormalities Bones: No acute abnormalities Mediastinum/Cardiac Silhouette/Lungs: [No acute abnormalities] CTA chest: Pulmonary embolism This 32-year-old female presents to the ER for evaluation of shortness of breath, and chest discomfort with weakness. On my exam the patient was tachycardic and anxious appearing. An IV was established the patient did have lab work drawn. The patient's EKG was nonischemic and chest x-ray was clear. Her d-dimer level was elevated and a CTA was obtained to rule out pulmonary embolism. CT shows no signs of pulmonary embolism and on my reevaluation the patient is sitting in bed comfortably. She is no longer tachycardic, her pulse ox is 100% on room air. She has no complaints of chest pain or chest discomfort currently. And states that she is feeling better. I do believe this patient could have a component of anxiety and stress to her symptoms. I did speak to her in regards to this and patient does feel comfortable with her plan for discharge at this time. I do not feel comfortable writing her anxiolytic medication given the fact she is breast-feeding and these medications are addictive and dangerous. The patient is comfortable with the plan of care for discharge and she was advised she can return to the ER at any point for reevaluation. Differential diagnoses entertained was broad with potential high acuity. Patient has been evaluated for acute myocardial infarction, unstable angina, aortic dissection, pulmonary embolism, other intrathoracic and cardiac concerns. Ultimately the patient's evaluation is nondiagnostic. Based on the patient's lack of risk factors, as well as the patient's clinical, laboratory, and imaging data, the patient appears to be low risk for these high risk causes of chest pain. Departure Diagnosis: Primary Impression: Anxiety Additional Impression: Stress reaction Condition: Fair ABDIEL ELLISON DO Aug 21, 2018 03:02
[2018-08-21 03:13] VITALS: BP 123/93; PULSE 96; RESP 24
== END 2018-08-21 03:14 | disposition home or self-care (01) ==
LOC: E/R 23:17
DX: F41.9 Anxiety disorder, unspecified (principal); I10 Essential (primary) hypertension; F43.9 Reaction to severe stress, unspecified; R40.2142 Coma scale, eyes open, spontaneous, at arrival to emergency department; R40.2362 Coma scale, best motor response, obeys commands, at arrival to emergency department; R40.2252 Coma scale, best verbal response, oriented, at arrival to emergency department
CPT/HCPCS: 36415; 71045; 71275; 80048; 84484; 85025; 85378; 93005; 99285; Q9967; Z7610